=== PATIENT | male | born 2000 | race Caucasian/White ===

== ENCOUNTER 2024-09-06 08:22 | Emergency (ER) | payer SELFPAY ==
[2024-09-06] MEDS ORDERED: FAMOTIDINE 20 MG/2 ML VIAL IV ONE (08:43)
[2024-09-06] MEDS ORDERED: ONDANSETRON 4 MG/2 ML VIAL ONE ×2 (08:43→09:20)
[2024-09-06] MEDS ORDERED: NA CHLORIDE 0.9% 1,000 ML ONE (08:44)
[2024-09-06 08:56] LABS: Absolute Lymphocytes (CBC) 1.5 K/uL (0.7-4.9); Absolute Monocytes 1.3 K/uL (0.1-1.3); Absolute Neutrophil 17.9 K/uL (1.8-8.0); Basophils % 0.2 % (0-1.3); Eosinophils % 0.1 % (0-4.4); Hematocrit 46.4 % (39.6-49.0); Hemoglobin 15.6 g/dL (13.6-17.9); MCH 31.1 pg (27.0-35.0); MCHC 33.7 g/dL (32.0-36.0); MCV 92.1 fL (80-100); MPV 8.1 fL (7.6-11.3); Monocytes % 6.4 % (3.3-12.3); Neutrophils % 86.3 % (41.7-73.7); Platelets 316 thou/uL (152-406); RBC Red Blood Cell Count 5.03 M/uL (4.33-5.43); Red Cell Distribution Width 13.3 % (12.1-15.2)
[2024-09-06] MEDS ORDERED: PANTOPRAZOLE 40 MG INJ ONE (09:11)
--- NOTE | 2024-09-06 09:11 | RAD REPORT ---
Abdomen Exam Limited: 09/06/2024 8:48 AM CLINICAL HISTORY: epigastric pain, vomiting STUDY: Limited right upper quadrant ultrasound of abdomen. COMPARISON: None. FINDINGS: Liver: No significant abnormality. Bile ducts: No intrahepatic or extrahepatic biliary dilatation. Common bile duct measures 3 mm. Gallbladder: Small polyp versus nonshadowing stone in the gallbladder fundus measuring 5 mm. No gallb ladder wall thickening. No pericholecystic fluid. No sonographic Gallardo sign. IMPRESSION: No evidence of cholecystitis. Small noncalcified gallstone versus polyp measuring 5 mm. Consider 12 m [facility] follow-up ultrasound.
[2024-09-06 09:13] LABS: Albumin 4.3 g/dL (3.4-5.0); Albumin/Globulin Ratio 1.2 (1.1-1.8); Anion Gap 13.4 mEq/L (5.0-15.0); Bilirubin Total 0.7 mg/dL (0.2-1.0); Globulin 3.5 g/dL (2.3-3.5); Potassium 3.4 mEq/L (3.5-5.1); Protein, Total 7.8 g/dL (6.4-8.2)
--- NOTE | 2024-09-06 09:13 | RAD REPORT ---
EXAM: Chest Single View HISTORY: vomiting COMPARISON: None. FINDINGS: LUNGS/PLEURA: The lungs are clear. No pleural effusions or pneumothorax. No pulmonary edema. MEDIASTINUM: The mediastinal silhouette is within normal limits. CARDIAC: The cardiac silhouette is within normal limits. UPPER ABDOMEN: No significant abnormality. BONES: No acute fracture. LINES/TUBES/OTHER: N/A IMPRESSION: No evidence of acute cardiopulmonary disease.
[2024-09-06] MEDS ORDERED: MORPHINE 4 MG/ML SYR ONE (09:20)
--- NOTE | 2024-09-06 09:39 | RAD REPORT ---
EXAMINATION: CT ABDOMEN AND PELVIS WITH CONTRAST CLINICAL INDICATION: Male, 23 years old.EPIGASTRIC PAIN TECHNIQUE: CT abdomen and pelvis was performed, after the administration of IV contrast, as per depar tment protocol. Axial, sagittal and coronal reconstructions were obtained. One or more of the following dose reduction techniques were used: Automated exposure control, adjustment of the mA and/o r kV according to patient size, and/or iterative reconstruction. Unless otherwise specified, incidental findings do not require dedicated imaging follow-up. [id number]. COMPARISON: No prior exam. FINDINGS: LOWER CHEST: Small hiatal hernia. LIVER: Normal in size and contour. No focal lesion. GALLBLADDER/BILE DUCT: No biliary ductal dilatation.? PANCREAS: No significant abnormality. SPLEEN: Normal size. No focal lesion. ADRENALS: Normal; no mass. KIDNEYS AND URETERS: Normal size and contour. No hydronephrosis. GASTROINTESTINAL TRACT: Stomach is non-dilated. Small bowel has normal course and caliber. No colonic wall thickening or pericolonic inflammatory changes. Normal appendix. PERITONEUM: No ascites. LYMPH NODES: No lymphadenopathy. ABDOMINAL AORTA AND OTHER VESSELS: Normal caliber aorta and IVC. URINARY BLADDER: Normal contour. REPRODUCTIVE ORGANS: No pathologic process MUSCULOSKELETAL: No acute or suspicious osseous abnormality. ADDITIONAL FINDINGS: None. IMPRESSION: No acute or significant abnormalities seen in the abdomen or pelvis.
[2024-09-06 09:50] LABS: Atypical Lymphocytes 1 %; Band Neutrophils 1 % (0-1); Blood Morphology Comment NOT SEEN (NOT SEEN); Differential Total Cells Count 100; Lymphocytes 5 % (15-42); Monocytes 5 % (0-10); Platelet Estimate ADEQ; Segmented Neutrophils 88 % (40-80)
[2024-09-06] MEDS ORDERED: POTASSIUM 25 MEQ EFFERV TAB ONE (10:01)
--- NOTE | 2024-09-06 10:38 | ER ---
Nurse's Notes [facility] Name: Filemon Vargas Age: 23 yrs Sex: Male : 2000 Arrival Date: 09/06/2024 Time: 08:22 Bed 15 Private MD: Diagnosis: Nausea with vomiting, unspecified;Epigastric pain Presentation: 09/06 08:34 Chief complaint: Patient states: epigastric pain, N/V that began Saturday. Night. HX of peptic ulcers. Coronavirus screen: Client denies travel out of the [place] in the last 14 days. Ebola Screen: Patient denies exposure to infectious person. Patient denies travel to an Ebola-affected area in the 21 days before illness onset. Initial Sepsis Screen: Does the patient meet any 2 criteria? No. Patient's initial sepsis screen is negative. Does the patient have a suspected source of infection? No. Patient's initial sepsis screen is negative. Risk Assessment: Do you want to hurt yourself or someone else? Patient reports no desire to harm self or others. Onset of symptoms was September 04, 2024. 08:34 Method Of Arrival: Ambulatory ss 08:34 Acuity: BOUBACAR 3 ss Historical: - Allergies: 08:36 Reglan; ss 08:36 Haldol; ss - Home Meds: 08:36 Pepcid [Active]; ss - PMHx: 08:36 PUD; ss - PSHx: 08:36 None; ss - Immunization history:: Adult Immunizations. - Infectious Disease History:: Denies. - Social history:: Smoking status: Patient denies any tobacco usage or history of. Screenin:30 [facility] ED Fall Risk Assessment (Adult) History of falling in the last 3 months, rs5 including since admission No falls in past 3 months (0 pts) Confusion or Disorientation No (0 pts) Intoxicated or Sedated No (0 pts) Impaired Gait No (0 pts) Mobility Assist Device Used No (0 pt) Altered Elimination No (0 pt) Score/Fall Risk Level 0 - 2 = Low Risk Oriented to surroundings, Maintained a safe environment. Abuse screen: Denies threats or abuse. Nutritional screening: No deficits noted. Tuberculosis screening: No symptoms or risk factors identified. Assessment: 08:30 General: Appears in no apparent distress. uncomfortable, Behavior is calm, cooperative. rs5 Pain: Complains of pain in epigastric area Pain currently is 8 out of 10 on a pain scale. Quality of pain is described as aching, Is continuous. Neuro: Level of Consciousness is awake, alert, obeys commands, Oriented to person, place, time, situation. Cardiovascular: Patient's skin is warm and dry. Respiratory: Airway is patent Respiratory effort is even, unlabored, Respiratory pattern is regular, symmetrical. GI: Abdomen is round non-distended, Reports nausea, vomiting. : No signs and/or symptoms were reported regarding the genitourinary system. EENT: No signs and/or symptoms were reported regarding the EENT system. Derm: Skin is intact, Skin is pink, warm \T\ dry. Musculoskeletal: Range of motion: intact in all extremities. 08:44 Reassessment: Patient and/or family updated on plan of care and expected duration. Pain rs5 level reassessed. Patient is alert, oriented x 3, equal unlabored respirations, skin warm/dry/pink. 10:10 Reassessment: Patient and/or family updated on plan of care and expected duration. Pain rs5 level reassessed. Patient is alert, oriented x 3, equal unlabored respirations, skin warm/dry/pink. 10:30 Reassessment: Patient and/or family updated on plan of care and expected duration. Pain rs5 level reassessed. Patient is alert, oriented x 3, equal unlabored respirations, skin warm/dry/pink. Vital Signs: 08:34 BP 145 / 89; Pulse 64; Resp 16; Temp 98.1(TE); Pulse Ox 98% on R/A; Weight 81.65 kg; ss Height 5 ft. 7 in. ; Pain 8/10; 09:57 BP 137 / 81; Pulse 70; Resp 17; Pulse Ox 98% on R/A; rs5 10:30 BP 132 / 77; Pulse 74; Resp 17; Pulse Ox 98% ; rs5 08:34 Body Mass Index 28.19 (81.65 kg, 170.18 cm) 08:34 Pain Scale: Adult ss ED Course: 08:26 Patient arrived in ED. sj2 08:26 Onesimo Vogel PA is PHCP. cp 08:26 Onesimo Cervantes MD is Attending Physician. cp 08:30 Patient has correct armband on for positive identification. Placed in gown. Bed in low rs5 position. Call light in reach. Side rails up X2. 08:30 No provider procedures requiring assistance completed. rs5 08:33 Alok Avery, RN is Primary Nurse. rs5 08:33 Inserted saline lock: 14 gauge 20 gauge in left antecubital area, using aseptic rs5 technique. Blood collected. Flushed with 10 mL NS. 08:36 Triage completed. ss 08:36 Arm band placed on right wrist. ss 09:06 US Abdomen Limited: gallbladder In Process Unspecified. EDMS 09:09 XRAY Chest (1 view) In Process Unspecified. EDMS 09:31 CT Abd/Pelvis - IV Contrast Only In Process Unspecified. EDMS 10:36 Ralf Weiss MD is Referral Physician. cp 10:42 IV discontinued, intact, bleeding controlled, No redness/swelling at site. Pressure rs5 dressing applied. Administered Medications: 09:07 Drug: Famotidine IVP 20 mg IVP once; dilute with 10 mL 0.9% NaCl; give over 2 minutes rs5 Route: IVP; Site: left antecubital; 09:30 Follow up: Response: No adverse reaction rs5 09:07 Drug: Ondansetron IVP 4 mg IVP once; over 2 minutes Route: IVP; Site: left antecubital; rs5 09:33 Follow up: Response: No adverse reaction; Nausea is decreased rs5 09:07 Drug: NS 0.9% IV 1000 ml IV at 1 bolus Per protocol; to be given as a bolus over 60 rs5 minutes Route: IV; Rate: 1 bolus; Site: left antecubital; 09:58 Follow up: Response: No adverse reaction; IV Status: Completed infusion; IV Intake: rs5 1000ml 09:24 Drug: morphine IVP or IV 4 mg IVP once over 4 mins Route: IVP; Infused Over: 4 mins; rs5 Site: left antecubital; 09:59 Follow up: Response: No adverse reaction; Pain is decreased rs5 09:24 Drug: Ondansetron IVP 4 mg IVP once; over 2 minutes Route: IVP; Site: left antecubital; rs5 09:59 Follow up: Response: No adverse reaction rs5 09:25 Drug: Pantoprazole IVP 40 mg IVP once Route: IVP; Site: left antecubital; rs5 09:59 Follow up: Response: No adverse reaction rs5 10:04 Drug: Potassium PO Effervescent Tablet 25 mEq PO once; dissolve in 4 ounces of water or rs5 juice Route: PO; 10:30 Follow up: Response: No adverse reaction rs5 Medication: 09:58 VIS not applicable for this client. rs5 Intake: 09:58 IV: 1000ml; Total: 1000ml. rs5 Outcome: 10:37 Discharge ordered by MD. cp 10:42 Discharged to home ambulatory, rs5 10:42 Condition: stable rs5 10:42 Discharge instructions given to patient, family, Instructed on discharge instructions, follow up and referral plans. Demonstrated understanding of instructions, follow-up care, medications, 10:46 Patient left the ED. rs5 Signatures: Dispatcher [employer] EDMS Domenica Chaidez RN RN ss Onesimo Vogel PA PA Alok Underwood RN RN rs5 Uzma Snowden sj2 Corrections: (The following items were deleted from the chart) 09:24 09:24 morphine IVP or IV 4 mg IVP in right antecubital over 4 mins rs5 rs5
--- NOTE | 2024-09-06 10:38 | EDPHYS ---
Physician Documentation [facility] Name: Filemon Vargas Age: 23 yrs Sex: Male : 2000 Arrival Date: 09/06/2024 Time: 08:22 Bed 15 Private MD: ED Physician Onesimo Cervantes HPI: 09/06 08:45 This 23 yrs old Male presents to ER via Ambulatory with complaints of Vomiting, cp Abdominal Pain. 08:45 The patient presents to the emergency department with nausea, that is severe, vomiting, cp that is continuous, abdominal pain, of the epigastric area. Onset: The symptoms/episode began/occurred 2 day(s) ago. Possible causes: flare up of bowel problem, history of stomach ulcers. Associated signs and symptoms: Pertinent positives: anorexia, hematemesis, Pertinent negatives: constipation, diarrhea, fever. Severity of symptoms: in the emergency department the symptoms are unchanged despite home interventions. Historical: - Allergies: 08:36 Reglan; ss 08:36 Haldol; ss - Home Meds: 08:36 Pepcid [Active]; ss - PMHx: 08:36 PUD; ss - PSHx: 08:36 None; ss - Immunization history:: Adult Immunizations. - Infectious Disease History:: Denies. - Social history:: Smoking status: Patient denies any tobacco usage or history of. ROS: 08:50 Constitutional: Positive for poor PO intake, Negative for body aches, chills, fever, cp 08:50 Respiratory: Negative for cough, shortness of breath, wheezing, cp 08:50 Eyes: Negative for injury, pain, redness, and discharge, cp 08:50 Cardiovascular: Negative for chest pain, palpitations, 08:50 Abdomen/GI: Positive for abdominal pain, nausea and vomiting, Negative for diarrhea, constipation, hematemesis, 08:50 Neuro: Negative for altered mental status, weakness, 08:50 All other systems are negative, cp Exam: 09:00 Constitutional: The patient appears in no acute distress, alert, awake, cp non-diaphoretic, non-toxic, well developed, well nourished, uncomfortable, 09:00 Head/Face: Normocephalic, atraumatic. cp 09:00 Eyes: Periorbital structures: appear normal, Conjunctiva: normal, no exudate, no injection, Sclera: no appreciated abnormality, Lids and lashes: appear normal, bilaterally, 09:00 ENT: External ear(s): are unremarkable, Nose: is normal, Mouth: Lips: moist, Oral mucosa: moist, Posterior pharynx: Airway: no evidence of obstruction, patent, 09:00 Chest/axilla: Inspection: normal, 09:00 Cardiovascular: Rate: normal, Rhythm: regular, 09:00 Respiratory: the patient does not display signs of respiratory distress, Respirations: normal, no use of accessory muscles, no retractions, labored breathing, is not present, Breath sounds: are clear throughout, no decreased breath sounds, no stridor, no wheezing, 09:00 Abdomen/GI: Inspection: abdomen appears normal, Bowel sounds: active, all quadrants, Palpation: soft, in all quadrants, severe abdominal tenderness, in the epigastric area, rebound tenderness, is not appreciated, voluntary guarding, is elicited in the epigastric area, 09:00 Back: CVA tenderness, is absent, 09:00 Neuro: Orientation: to person, place \T\ time. Mentation: is normal, Motor: moves all fours, strength is normal, Sensation: is normal, Vital Signs: 08:34 BP 145 / 89; Pulse 64; Resp 16; Temp 98.1(TE); Pulse Ox 98% on R/A; Weight 81.65 kg; ss Height 5 ft. 7 in. ; Pain 8/10; 09:57 BP 137 / 81; Pulse 70; Resp 17; Pulse Ox 98% on R/A; rs5 10:30 BP 132 / 77; Pulse 74; Resp 17; Pulse Ox 98% ; rs5 08:34 Body Mass Index 28.19 (81.65 kg, 170.18 cm) ss 08:34 Pain Scale: Adult ss MDM: 08:29 Medical Screening Exam initiated cp 09:00 Differential diagnosis: gastritis, cholecystitis, pancreatitis, viral gastroenteritis, cp gastroenteritis. 10:36 Data reviewed: vital signs, nurses notes, lab test result(s), radiologic studies, CT cp scan, ultrasound, and as a result, I will discharge patient. 10:36 I considered the following discharge prescriptions or medication management in the emergency department Medications were administered in the Emergency Department. See MAR. Counseling: I had a detailed discussion with the patient and/or guardian regarding the historical points, exam findings, and any diagnostic results supporting the discharge/admit diagnosis, lab results, radiology results, to return to the emergency department if symptoms worsen or persist or if there are any questions or concerns that arise at home. Response to treatment: the patient's symptoms have markedly improved after treatment, and as a result, I will discharge patient. Special discussion: Based on the patient's Hx, exam, and Dx evaluation, there is no indication for emergent surgery or inpatient Tx. It is understood by the patient/guardian that if the Sx's persist or worsen they need to return immediately for re-evaluation. 09/06 08:40 Order name: CBC with Diff; Complete Time: 10:12 09/06 09:18 Interpretation: Normal except: WBC 20.80; AKUA% 86.3; LYM% 7.0; NEUT A 17.9. 09/06 08:40 Order name: CMP; Complete Time: 09:18 09/06 09:18 Interpretation: Normal except: K 3.4; GLUC 126. 09/06 08:40 Order name: Lipase; Complete Time: 09:18 09/06 09:19 Interpretation: Reviewed. 09/06 09:50 Order name: Manual Differential; Complete Time: 10:12 EDMS 09/06 10:12 Interpretation: Normal except: SEGS 88; LYM 5. 09/06 08:47 Order name: XRAY Chest (1 view); Complete Time: 09:18 09/06 08:48 Order name: US Abdomen Limited: gallbladder; Complete Time: 09:12 09/06 09:13 Interpretation: Report reviewed. 09/06 09:12 Order name: CT Abd/Pelvis - IV Contrast Only; Complete Time: 09:40 09/06 09:40 Interpretation: Report reviewed. 09/06 08:40 Order name: IV Saline Lock; Complete Time: 09:07 09/06 08:40 Order name: Labs collected and sent; Complete Time: 09:07 09/06 08:48 Order name: NPO; Complete Time: 09:07 09/06 10:13 Order name: PO challenge; Complete Time: 10:36 cp Administered Medications: 09:07 Drug: Famotidine IVP 20 mg IVP once; dilute with 10 mL 0.9% NaCl; give over 2 minutes rs5 Route: IVP; Site: left antecubital; 09:30 Follow up: Response: No adverse reaction rs5 09:07 Drug: Ondansetron IVP 4 mg IVP once; over 2 minutes Route: IVP; Site: left antecubital; rs5 09:33 Follow up: Response: No adverse reaction; Nausea is decreased rs5 09:07 Drug: NS 0.9% IV 1000 ml IV at 1 bolus Per protocol; to be given as a bolus over 60 rs5 minutes Route: IV; Rate: 1 bolus; Site: left antecubital; 09:58 Follow up: Response: No adverse reaction; IV Status: Completed infusion; IV Intake: rs5 1000ml 09:24 Drug: morphine IVP or IV 4 mg IVP once over 4 mins Route: IVP; Infused Over: 4 mins; rs5 Site: left antecubital; 09:59 Follow up: Response: No adverse reaction; Pain is decreased rs5 09:24 Drug: Ondansetron IVP 4 mg IVP once; over 2 minutes Route: IVP; Site: left antecubital; rs5 09:59 Follow up: Response: No adverse reaction rs5 09:25 Drug: Pantoprazole IVP 40 mg IVP once Route: IVP; Site: left antecubital; rs5 09:59 Follow up: Response: No adverse reaction rs5 10:04 Drug: Potassium PO Effervescent Tablet 25 mEq PO once; dissolve in 4 ounces of water or rs5 juice Route: PO; 10:30 Follow up: Response: No adverse reaction rs5 Disposition Summary: 09/06/24 10:37 Discharge Ordered Notes: Location: Home cp Problem: new cp Symptoms: have improved cp Condition: Stable cp Diagnosis - Nausea with vomiting, unspecified cp - Epigastric pain cp Followup: cp - With: Ralf Weiss MD - When: 1 week - Reason: symptoms continue Discharge Instructions: - Discharge Summary Sheet cp - Gastroesophageal Reflux Disease, Adult cp - Nausea and Vomiting, Adult cp - Peptic Ulcer cp Forms: - Medication Reconciliation Form cp - Antibiotic Education cp - Prescription Opioid Use cp - Patient Portal Instructions cp - Leadership Thank You Letter cp Prescriptions: - Protonix 40 mg Oral Tablet - take 1 tablet ORAL route once daily; 30 tablet; Refills: 0, Product Selection cp Permitted - ondansetron 8 mg Oral Tablet,disintegrating - take 1 tablet ORAL route every 12 hours As needed; 20 tablet; Refills: 0, cp Product Selection Permitted Signatures: Dispatcher [employer] EDMS Domenica Chaidez RN RN ss Onesimo Vogel PA PA cp Sotelo, Ricky RN RN rs5 Corrections: (The following items were deleted from the chart) 08:41 08:40 CBC+H.LAB.BRZ ordered. EDMS EDMS 08:41 08:40 COMPREHENSIVE METABOLIC PANEL+C.LAB.BRZ ordered. EDMS EDMS 08:41 08:40 LIPASE+C.LAB.BRZ ordered. EDMS EDMS 08:41 08:40 Urinalysis+U.LAB.BRZ ordered. EDMS EDMS 08:41 08:40 URINE DRUG SCREEN+UC.LAB.BRZ ordered. EDMS EDMS 09:18 09:10 Reviewed. cp cp
[2024-09-06 10:50] VITALS: TEMP 98.1; O2SAT 98
[2024-09-06 10:52] VITALS: BP 137/81
== END 2024-09-06 10:46 | disposition home or self-care (01) ==
LOC: ER 08:22
DX: R11.2 Nausea with vomiting, unspecified (principal); R10.13 Epigastric pain
CPT/HCPCS: 36415; 71045; 74177; 76705; 80053; 83690; 85025; 96361; 96374; 96375; 99284; J2405; J2470; J7030; Q9967

== ENCOUNTER 2024-11-22 09:06 | Emergency (ER) | payer SELFPAY ==
[2024-11-22] MEDS ORDERED: NA CHLORIDE 0.9% 1,000 ML ONE (09:54)
[2024-11-22] MEDS ORDERED: FAMOTIDINE 20 MG/2 ML VIAL IV ONE (09:54)
[2024-11-22] MEDS ORDERED: MORPHINE 4 MG/ML SYR ONE (09:54)
[2024-11-22] MEDS ORDERED: ONDANSETRON 4 MG/2 ML VIAL ONE (09:54)
[2024-11-22] MEDS ORDERED: LORazepam 2 MG/ML VIAL ONE (10:11)
[2024-11-22 10:29] LABS: Specific Gravity 1.025 (1.005-1.030); Sqamous Epithelial None Seen /HPF (None Seen); Urine Bacteria None Seen /HPF (<20); Urine Bilirubin NEGATIVE (Negative); Urine Blood Trace (Negative); Urine Clarity Clear (Clear); Urine Color Light-Yellow (Yellow); Urine Crystals Unidentified Few /HPF (None Seen); Urine Culture Reflex Order NOT NEEDED; Urine Glucose 1+ (Negative); Urine Ketones 1+ (Negative); Urine Microscopic Reflex YN ORDER UMIC; Urine Mucus Slight /HPF (None Seen); Urine Nitrite NEGATIVE (Negative); Urine Protein TRACE (Negative); Urine RBC <5 /HPF (None Seen); Urine Urobilinogen Normal (Normal); Urine WBC <5 /HPF (<5)
[2024-11-22 10:32] LABS: Absolute Basophils 0.1 K/uL (0-0.5); Absolute Eosinophils 0.1 K/uL (0-0.5); Absolute Lymphocytes (CBC) 1.3 K/uL (0.7-4.9); Absolute Monocytes 0.6 K/uL (0.1-1.3); Absolute Neutrophil 11.8 K/uL (1.8-8.0); Basophils % 0.6 % (0-1.3); Eosinophils % 0.6 % (0-4.4); Hematocrit 43.3 % (39.6-49.0); Hemoglobin 14.7 g/dL (13.6-17.9); Lymphocytes % 9.6 % (15.3-44.8); MCH 31.5 pg (27.0-35.0); MCHC 33.9 g/dL (32.0-36.0); MCV 92.8 fL (80-100); MPV 7.9 fL (7.6-11.3); Monocytes % 4.5 % (3.3-12.3); Neutrophils % 84.7 % (41.7-73.7); Platelets 280 thou/uL (152-406); RBC Red Blood Cell Count 4.67 M/uL (4.33-5.43); Red Cell Distribution Width 13.1 % (12.1-15.2)
[2024-11-22 10:33] LABS: Barbiturates NEGATIVE (NEGATIVE); Benzodiazepines NEGATIVE (NEGATIVE); Cocaine NEGATIVE (NEGATIVE); METHAMPHETAM NEGATIVE (NEGATIVE); Methadone NEGATIVE (NEGATIVE); Opiates NEGATIVE (NEGATIVE); Phencyclidine NEGATIVE (NEGATIVE); THC Cannibis POSITIVE (NEGATIVE)
[2024-11-22 10:44] LABS: Albumin 4.3 g/dL (3.4-5.0); Albumin/Globulin Ratio 1.3 (1.1-1.8); Anion Gap 10.9 mEq/L (5.0-15.0); Bilirubin Total 0.6 mg/dL (0.2-1.0); Globulin 3.2 g/dL (2.3-3.5); Protein, Total 7.5 g/dL (6.4-8.2)
[2024-11-22 10:59] LABS: Potassium 3.9 mEq/L (3.5-5.1)
--- NOTE | 2024-11-22 10:59 | RAD REPORT ---
EXAMINATION: CT ABDOMEN AND PELVIS WITH CONTRAST CLINICAL INDICATION: ABD PAIN TECHNIQUE: CT abdomen and pelvis was performed, after the administration of IV contrast, as per [facility] protocol. Axial, sagittal and coronal reconstructions were obtained. One or more of the following dose reduction techniques were used: Automated exposure control, adjustment of the mA and k V according to patient size, and iterative reconstruction. Unless otherwise specified, incidental findings do not require dedicated imaging follow-up. COMPARISON: 09/06/2024 FINDINGS: LOWER CHEST: The visualized lung bases are clear. Small lateral hernia. LIVER: Normal in size and contour. No focal lesion. Grossly unremarkable gallbladder. SPLEEN: Normal size. No focal lesion. PANCREAS: No mass, ductal dilation, or anitra-pancreatic fluid. ADRENALS: Normal; no mass. KIDNEYS: Normal size and contour. No hydronephrosis. GASTROINTESTINAL TRACT: No evidence of free air, significant intra-abdominal free fluid, bowel obstru ction or abscess. Transverse and right-sided colon shows submucosal fatty hypertrophy. APPENDIX: Normal appendix. LYMPH NODES: No lymphadenopathy. MUSCULOSKELETAL: No acute or suspicious osseous abnormality. ADDITIONAL FINDINGS: Small fat-containing umbilical hernia. IMPRESSION: No acute or concerning abnormalities seen in the abdomen or pelvis.
--- NOTE | 2024-11-22 11:26 | EDPHYS ---
Physician Documentation [facility] Name: Filemon Vargas Age: 24 yrs Sex: Male : 2000 Arrival Date: 11/22/2024 Time: 09:06 Bed 2 Private MD: ED Physician Mina Aranda HPI: 11/22 09:48 This 24 yrs old Male presents to ER via Unassigned with complaints of abd pain, n/v. sb4 09:48 The patient presents with abdominal pain in the epigastric area. Onset: The sb4 symptoms/episode began/occurred last night. The symptoms do not radiate. Associated signs and symptoms: Pertinent positives: nausea and vomiting. Modifying factors: The symptoms are alleviated by nothing, the symptoms are aggravated by nothing. The patient has experienced similar episodes in the past, a few times, today's symptoms are similar, to when the patient was apparently diagnosed with ulcer. The patient has not recently seen a physician. 10:18 n/v and abd pain since last night. has known history of ulcers, is not taking any sb4 medication, has not followed up with GI. denies any alcohol abuse. denies any stool abnormality. Historical: - Allergies: 09:48 Haldol; cm10 09:48 Reglan; cm10 - PMHx: 09:48 PUD; cm10 - Immunization history:: Adult Immunizations up to date. - Infectious Disease History:: Denies. - Social history:: Smoking status: Patient reports the use of cigarette tobacco products. ROS: 09:48 Constitutional: Negative for fever, chills, and weight loss, sb4 09:48 Abdomen/GI: Positive for abdominal pain, nausea and vomiting, 09:48 All other systems are negative, Exam: 09:48 Head/Face: Normocephalic, atraumatic. Eyes: Extra-ocular motions intact. Periorbital sb4 areas with no swelling, redness, or edema. ENT: Mucous membranes moist. Cardiovascular: Regular rate and rhythm with a normal S1 and S2. Respiratory: No increased work of breathing, no retractions or nasal flaring. Skin: Warm, dry with normal turgor. Normal color with no rashes, no lesions, and no evidence of cellulitis. 09:48 Constitutional: The patient appears alert, awake, in obvious pain, pale, uncomfortable, 09:48 Abdomen/GI: Inspection: abdomen appears normal, Bowel sounds: normal, Palpation: soft, moderate abdominal tenderness, in the epigastric area, Vital Signs: 09:45 BP 137 / 86; Pulse 66; Resp 18; Temp 97.6(O); Pulse Ox 100% ; Weight 81.65 kg; Height 5 cm10 ft. 7 in. ; Pain 10/10; 10:15 BP 130 / 71; Pulse 55; Resp 18; Pulse Ox 100% on R/A; Pain 8/10; ld1 12:30 BP 118 / 76; Pulse 61; Resp 18; Pulse Ox 100% on R/A; ld1 09:45 Body Mass Index 28.19 (81.65 kg, 170.18 cm) cm10 09:45 Pain Scale: Adult cm10 10:15 Pain Scale: Adult ld1 MDM: 09:14 Medical Screening Exam initiated sb4 11:26 Data reviewed: vital signs, nurses notes, lab test result(s), radiologic studies, and sb4 as a result, I will discharge patient. Counseling: I had a detailed discussion with the patient and/or guardian regarding the historical points, exam findings, and any diagnostic results supporting the discharge/admit diagnosis, lab results, radiology results, the need for outpatient follow up, a wood processing worker, to return to the emergency department if symptoms worsen or persist or if there are any questions or concerns that arise at home. 11/22 09:47 Order name: CBC with Diff; Complete Time: 10:37 sb4 11/22 09:47 Order name: CMP; Complete Time: 11:07 sb4 11/22 09:47 Order name: Lipase; Complete Time: 11:07 sb4 11/22 09:47 Order name: Urinalysis w/ reflexes; Complete Time: 10:31 sb4 11/22 09:59 Order name: UDS; Complete Time: 10:33 ld1 11/22 09:47 Order name: CT Abd/Pelvis - IV Contrast Only; Complete Time: 11:07 sb4 11/22 09:47 Order name: IV Saline Lock; Complete Time: 10:15 sb4 11/22 09:47 Order name: Labs collected and sent; Complete Time: 10:15 sb4 11/22 11:08 Order name: PO challenge; Complete Time: 11:46 sb4 Administered Medications: 10:14 Drug: Famotidine IVP 20 mg IVP once; dilute with 10 mL 0.9% NaCl; give over 2 minutes ld1 Route: IVP; Site: right antecubital; 12:16 Follow up: Response: No adverse reaction ld1 10:14 Drug: NS 0.9% IV 1000 ml IV at 1 bolus Per protocol; to be given as a bolus over 60 ld1 minutes Route: IV; Rate: 1 bolus; Site: right antecubital; 12:16 Follow up: Response: No adverse reaction; IV Status: Completed infusion; IV Intake: ld1 1000ml 10:14 Drug: Ativan IVP 1 mg IVP once Route: IVP; Site: right antecubital; ld1 12:16 Follow up: Response: No adverse reaction ld1 10:15 Drug: Ondansetron IVP 4 mg IVP once; over 2 minutes Route: IVP; Site: right antecubital;ld1 12:17 Follow up: Response: No adverse reaction ld1 10:15 Drug: morphine IVP or IV 4 mg IVP once over 4 mins Route: IVP; Infused Over: 4 mins; ld1 Site: right antecubital; 12:17 Follow up: Response: No adverse reaction ld1 12:16 Drug: GI Cocktail without - (Maalox PO 30 ml, Lidocaine Mucous Membrane 2 % 15 ld1 ml) PO once Route: PO; 12:17 Follow up: Response: No adverse reaction ld1 Disposition: 16:38 Co-signature as Attending Physician, Mina Aranda MD I reviewed the patient's care rn provided by the Advanced Practice Provider and agree with the diagnosis and treatment plan. Disposition Summary: 11/22/24 11:25 Discharge Ordered Notes: Location: Home sb4 Problem: an acute exacerbation sb4 Symptoms: have improved sb4 Condition: Stable sb4 Diagnosis - Personal history of peptic ulcer disease sb4 - Upper abdominal pain, unspecified sb4 Followup: sb4 - With: Ralf Weiss MD - When: 1 week - Reason: Further diagnostic work-up, Recheck today's complaints, Re-evaluation by your physician Discharge Instructions: - Discharge Summary Sheet sb4 - Abdominal Pain, Adult sb4 - Peptic Ulcer, [id number] sb4 - Peptic Ulcer Eating Plan sb4 Forms: - Patient Portal Instructions sb4 - Leadership Thank You Letter sb4 Prescriptions: - sucralfate 1 gram Oral tablet - take 1 tablet ORAL route before meals for 4 wks; 90 tablet; Refills: 0, Product sb4 Selection Permitted - Protonix 40 mg Oral Tablet - take 1 tablet ORAL route once daily; 30 tablet; Refills: 0, Product Selection sb4 Permitted Signatures: Dispatcher [employer] EDMS Mina Aranda MD MD rn Sims, Lauren, RN RN ld1 Gladis Arreguin PA-C PAMaria Elena sb4 Sue Jaimes RN RN cm10 Corrections: (The following items were deleted from the chart) 09:48 09:48 Abdomen Pelvis W Con+CT.RAD.BRZ ordered. EDWI EDMS
--- NOTE | 2024-11-22 11:26 | ER ---
Nurse's Notes [facility] Name: Filemon Vargas Age: 24 yrs Sex: Male : 2000 Arrival Date: 11/22/2024 Time: 09:06 Bed 2 Private MD: Diagnosis: Personal history of peptic ulcer disease;Upper abdominal pain, unspecified Presentation: 11/22 09:45 Chief complaint: Patient states: upper abdominal pain and vomiting onset last night. Pt cm10 states "I have an ulcer that act ups". Coronavirus screen: Client denies travel out of the [place] in the last 14 days. Ebola Screen: Patient denies travel to an Ebola-affected area in the 21 days before illness onset. Initial Sepsis Screen: Does the patient meet any 2 criteria? No. Patient's initial sepsis screen is negative. Does the patient have a suspected source of infection? No. Patient's initial sepsis screen is negative. Risk Assessment: Do you want to hurt yourself or someone else? Patient reports no desire to harm self or others. Onset of symptoms was November 22, 2024. 09:45 Method Of Arrival: Ambulatory cm10 09:45 Acuity: BOUBACAR 3 cm10 Triage Assessment: 09:48 General: Appears uncomfortable, Behavior is crying. Neuro: No deficits noted. Level of cm10 Consciousness is awake, alert, obeys commands, Oriented to person, place, time, situation, Appropriate for age. Respiratory: No deficits noted. Airway is patent Respiratory effort is even, unlabored, Respiratory pattern is regular, symmetrical. Historical: - Allergies: 09:48 Haldol; cm10 09:48 Reglan; cm10 - PMHx: 09:48 PUD; cm10 - Immunization history:: Adult Immunizations up to date. - Infectious Disease History:: Denies. - Social history:: Smoking status: Patient reports the use of cigarette tobacco products. Screenin:15 [facility] ED Fall Risk Assessment (Adult) History of falling in the last 3 months, ld1 including since admission No falls in past 3 months (0 pts) Confusion or Disorientation No (0 pts) Intoxicated or Sedated No (0 pts) Impaired Gait No (0 pts) Mobility Assist Device Used No (0 pt) Altered Elimination No (0 pt) Score/Fall Risk Level 0 - 2 = Low Risk Oriented to surroundings, Hourly rounding (assess needs \\T\\ fall precautionary measures) done. Abuse screen: Denies threats or abuse. Denies injuries from another. Nutritional screening: No deficits noted. Tuberculosis screening: No symptoms or risk factors identified. Assessment: 10:15 Reassessment: Pt displaying signs of anxiety. Shaking legs, rubbing stomach non stop. ld1 States "I am sorry, I don't know why I can't sit still, I am feeling very anxious. I think I need to be on anxiety medication. When I feel anxious I start to throw up." Notified ERP. See MAR for orders. General: Appears uncomfortable, Behavior is cooperative, anxious. Pain: Complains of pain in abdomen Pain does not radiate. Pain currently is 8 out of 10 on a pain scale. Quality of pain is described as burning, throbbing, Pain began suddenly, Is continuous. Neuro: Level of Consciousness is awake, alert, obeys commands, Oriented to person, place, time, situation, Appropriate for age. Cardiovascular: Capillary refill < 3 seconds Patient's skin is warm and dry. Rhythm is sinus bradycardia. Respiratory: Airway is patent Respiratory effort is even, unlabored. GI: Abdomen is round non-distended, Reports upper abdominal pain, nausea, vomiting. : No signs and/or symptoms were reported regarding the genitourinary system. EENT: No signs and/or symptoms were reported regarding the EENT system. Derm: No signs and/or symptoms reported regarding the dermatologic system. Musculoskeletal: No signs and/or symptoms reported regarding the musculoskeletal system. 12:30 Reassessment: Patient appears in no apparent distress at this time. No changes from ld1 previously documented assessment. Patient and/or family updated on plan of care and expected duration. Pain level reassessed. Patient is alert, oriented x 3, equal unlabored respirations, skin warm/dry/pink. Vital Signs: 09:45 BP 137 / 86; Pulse 66; Resp 18; Temp 97.6(O); Pulse Ox 100% ; Weight 81.65 kg; Height 5 cm10 ft. 7 in. ; Pain 10/10; 10:15 BP 130 / 71; Pulse 55; Resp 18; Pulse Ox 100% on R/A; Pain 8/10; ld1 12:30 BP 118 / 76; Pulse 61; Resp 18; Pulse Ox 100% on R/A; ld1 09:45 Body Mass Index 28.19 (81.65 kg, 170.18 cm) cm10 09:45 Pain Scale: Adult cm10 10:15 Pain Scale: Adult ld1 ED Course: 09:08 Patient arrived in ED. mr 09:12 Glad[facility]reguin [facility] sb4 09:12 Mina Aranda MD is Attending Physician. sb4 09:48 Triage completed. cm10 09:48 Arm band placed on right wrist. Patient placed in an exam room. cm10 10:14 Amparo Shah, CHANDRAKANT is Primary Nurse. ld1 10:15 Patient has correct armband on for positive identification. Placed in gown. Bed in low ld1 position. Call light in reach. Side rails up X2. alarm security or surveillance monitor on. Pulse ox on. NIBP on. Door closed. Noise minimized. Warm blanket given. 10:15 Inserted saline lock: 20 gauge in right antecubital area, using aseptic technique. ld1 Blood collected. Flushed with 10 mL NS. 10:15 No provider procedures requiring assistance completed. ld1 10:33 CT Abd/Pelvis - IV Contrast Only In Process Unspecified. EDMS 11:25 Ralf Weiss MD is Referral Physician. sb4 12:42 IV discontinued, intact, bleeding controlled, No redness/swelling at site. ld1 Administered Medications: 10:14 Drug: Famotidine IVP 20 mg IVP once; dilute with 10 mL 0.9% NaCl; give over 2 minutes ld1 Route: IVP; Site: right antecubital; 12:16 Follow up: Response: No adverse reaction ld1 10:14 Drug: NS 0.9% IV 1000 ml IV at 1 bolus Per protocol; to be given as a bolus over 60 ld1 minutes Route: IV; Rate: 1 bolus; Site: right antecubital; 12:16 Follow up: Response: No adverse reaction; IV Status: Completed infusion; IV Intake: ld1 1000ml 10:14 Drug: Ativan IVP 1 mg IVP once Route: IVP; Site: right antecubital; ld1 12:16 Follow up: Response: No adverse reaction ld1 10:15 Drug: Ondansetron IVP 4 mg IVP once; over 2 minutes Route: IVP; Site: right antecubital;ld1 12:17 Follow up: Response: No adverse reaction ld1 10:15 Drug: morphine IVP or IV 4 mg IVP once over 4 mins Route: IVP; Infused Over: 4 mins; ld1 Site: right antecubital; 12:17 Follow up: Response: No adverse reaction ld1 12:16 Drug: GI Cocktail without - (Maalox PO 30 ml, Lidocaine Mucous Membrane 2 % 15 ld1 ml) PO once Route: PO; 12:17 Follow up: Response: No adverse reaction ld1 Medication: 10:15 VIS not applicable for this client. ld1 Intake: 12:16 IV: 1000ml; Total: 1000ml. ld1 Outcome: 11:25 Discharge ordered by . sb4 12:41 Discharged to home ambulatory, ld1 12:41 Condition: stable 12:41 Discharge instructions given to patient, Instructed on discharge instructions, follow up and referral plans. medication usage, Demonstrated understanding of instructions, follow-up care, medications, Prescriptions given X 2, 12:42 Patient left the ED. ld1 Signatures: Dispatcher [employer] EDCT Iesha Santiago, Reg Reg mr Amparo Shah, RN RN ld1 Gladis Arreguin PAMaria Elena PARodgerC sb4 Sue Jaimes, RN RN cm10
[2024-11-22] MEDS ORDERED: MAGNES/ALUMIN/SIMET 30ML UCUP ONE (12:06)
[2024-11-22] MEDS ORDERED: LIDOCAINE VISCOUS 2% 10ML ORAL SOLN ONE (12:06)
[2024-11-22 12:56] VITALS: TEMP 97.6; O2SAT 100
[2024-11-22 12:59] VITALS: BP 118/76
== END 2024-11-22 12:42 | disposition home or self-care (01) ==
LOC: ER 09:06
DX: K27.9 Peptic ulcer, site unspecified, unspecified as acute or chronic, without hemorrhage or perforation (principal); Z72.0 Tobacco use
CPT/HCPCS: 36415; 74177; 80053; 80307; 81001; 83690; 85025; 96361; 96374; 96375; 99285; J2405; J7030; Q9967